=== PATIENT | female | born 1955 | race American Indian/Alaskan Native ===

== ENCOUNTER 2017-03-04 07:50 | Outpatient (CLI) | payer MEDICARE ==
[2017-03-04 08:18] LABS: Basophils % (Auto) 0.9 % (0.0-1.8); Hematocrit 38.9 % (30.3-42.9); Hemoglobin 13.1 gm/dl (10.1-14.3); Mean Corpuscular HGB Conc 34 % (30-34); Mean Corpuscular Hemoglobin 31 pg (28-32); Mean Corpuscular Volume 90 fl (79-97); Platelet Count 208 K/mm3 (140-440); Red Blood Count 4.31 M/mm3 (3.65-5.03); Red Cell Distribution Width 13.3 % (13.2-15.2); White Blood Count 6.3 K/mm3 (4.5-11.0)
[2017-03-04 08:30] LABS: Alanine Aminotransferase 17 units/L (7-56); Albumin/Globulin Ratio 1.3 %; Alkaline Phosphatase 76 units/L (35-129); Anion Gap 17 mmol/L; BUN/Creatinine Ratio 19; Blood Urea Nitrogen 13 mg/dL (7-17); Calcium 8.7 mg/dL (8.4-10.2); Carbon Dioxide 25 mmol/L (22-30); Chloride 104.5 mmol/L (98-107); Glucose 118 mg/dL (65-100); Potassium 4.5 mmol/L (3.6-5.0); Sodium 142 mmol/L (137-145)
== END 2017-03-04 07:51 | disposition home or self-care (01) ==
LOC: LAB 07:50
PROVIDERS: ATTEND Specialist
DX: G35 Multiple sclerosis (principal)
CPT/HCPCS: 36415; 80053; 85025